=== PATIENT | female | born 1960 | race Caucasian/White ===

== ENCOUNTER 2019-04-21 09:34 | Emergency (ER) | payer OTHER ==
[~2019-04-21] VITALS: Ht 170.2 cm; Wt 85.3 kg
[~2019-04-21 09:34] MED LIST: APAP/HYDROCODON1 T13 PO; BUS5 PO; KLONOPIN0.5 MG PO; LIPI20 PO; NEU300 PO; SOMA350 MG PO
[2019-04-21 09:43] VITALS: Ht 170.2 cm; Wt 85.3 kg
[2019-04-21 10:47] VITALS: BP 113/78
== END 2019-04-21 10:47 | disposition home or self-care (01) ==
LOC: ED 09:34
DX: J02.8 Acute pharyngitis due to other specified organisms (principal); Z88.5 Allergy status to narcotic agent